=== PATIENT | male | born 1975 | race Caucasian/White ===

== ENCOUNTER 2019-09-04 10:40 | Emergency (ER) | payer OTHER ==
--- NOTE | 2019-09-04 10:58 | EDM.PDOC ---
ED HPI GENERAL MEDICAL PROBLEM - General Chief Complaint: Lower Extremity Injury/Pain Stated Complaint: 300 LBS DROPPED ON RIGHT FOOT/TOES Time Seen by Provider: 09/04/19 10:57 Source of Information: Reports: Patient, RN, RN Notes Reviewed History Limitations: Reports: No Limitations - History of Present Illness INITIAL COMMENTS - FREE TEXT/NARRATIVE: Pt presents to ER from active duty at [facility] with c/o crush injury to the right toes sustained from a 300lb section of three wood larry that was being moved fell onto his foot. Pt denies any other injury. Onset: Today, Sudden Duration: Constant Location: Reports: Lower Extremity, Right Quality: Reports: Ache Severity: Severe Improves with: Reports: None Worsens with: Reports: Other (Wt bearing/walking), Movement Context: Reports: Other (Crush injury) Associated Symptoms: Reports: No Other Symptoms Right Feet Pain Score (Numeric/FACES): 8 - Related Data Allergies Allergy/AdvReac Type Severity Reaction Status Date / Time No Known Allergies Allergy Verified 09/04/19 10:57 Home Meds: Home Meds Bimatoprost [LUMIGAN 0.01% Ophth Soln] 1 drop EYEBOTH DAILY 09/04/19 [History] Brimonidine Tartrate/Timolol [Combigan 0.2%-0.5% Eye Drops] 1 drop EYEBOTH BID 09/04/19 [History] Gabapentin [Neurontin] 300 mg PO QPM 09/04/19 [History] Levothyroxine Sodium [Synthroid] 137 mcg PO DAILY 09/04/19 [History] Omeprazole 20 mg PO DAILY 09/04/19 [History] Past Medical History Endocrine/Metabolic History: Reports: Hypothyroidism Social & Family History - Family History Family Medical History: Noncontributory - Living Situation & Occupation Occupation: Employed ([employer]) Review of Systems - Review of Systems Review Of Systems: Comprehensive ROS is negative, except as noted in HPI. ED EXAM, GENERAL - Physical Exam Exam: See Below Exam Limited By: No Limitations General Appearance: Alert, WD/WN, No Apparent Distress Respiratory/Chest: No Respiratory Distress Peripheral Pulses: 3+: Dorsalis Pedis (R) Extremities: No Pedal Edema, Normal Capillary Refill, Other (Rt toes 1-5 with mild soft tissue swelling and tenderness, no visible bruising or deformity, Rt foot proximal to toes is normal to exam.) Neurological: Alert, Oriented, No Motor/Sensory Deficits, Other (antalgic gait favoring Rt foot.) Course - Vital Signs Last Recorded V/S: Last Vital Signs Temp 97 F 09/04/19 10:53 Pulse 75 09/04/19 10:53 Resp 18 09/04/19 10:53 BP 129/93 H 09/04/19 10:53 Pulse Ox 97 09/04/19 10:53 - Orders/Labs/Meds Orders: Active Orders 24 hr Category Date Time Status Foot Comp Min 3V Rt [CR] Urgent Exams 09/04/19 11:20 Taken - Radiology Interpretation Free Text/Narrative:: XR Rt toes: no acute fractures, see Rad. report. Departure - Departure Time of Disposition: 12:18 Disposition: Home, Self-Care 01 Condition: Good Clinical Impression: Contusion of right foot including toes Qualifiers: Encounter type: initial encounter Qualified Code(s): S90.31XA - Contusion of right foot, initial encounter; S90.121A - Contusion of right lesser toe(s) without damage to nail, initial encounter - Discharge Information *PRESCRIPTION DRUG MONITORING PROGRAM REVIEWED*: Not Applicable *COPY OF PRESCRIPTION DRUG MONITORING REPORT IN PATIENT PATRICIA: Not Applicable Instructions: Foot Contusion, [id number] Forms: ED Department Discharge Additional Instructions: Rest, ice, and elevate right foot as needed. Activity as tolerated. Use Tylenol or Ibuprofen as needed for pain. Follow up in clinic for recheck if needed. Sepsis Event Note (ED) - Focused Exam Vital Signs: Vital Signs Temp Pulse Resp BP Pulse Ox 09/04/19 10:53 97 F 75 18 129/93 H 97 - My Orders Last 24 Hours: My Active Orders 09/04/19 11:20 Foot Comp Min 3V Rt [CR] Urgent - Assessment/Plan Last 24 Hours: My Active Orders 09/04/19 11:20 Foot Comp Min 3V Rt [CR] Urgent
--- NOTE | 2019-09-04 13:09 | CR ---
EXAMINATION: Foot Comp Min 3V Rt SEX: Male AGE: 44 years CLINICAL HISTORY: 44-year-old male, crush injury right forefoot (Rt toes 1-5). INTERPRETATION: 1. Pes cavus and hammertoe deformities right foot. 2. *Subtle cortical irregularity proximal diaphysis of the middle phalanx fourth toe suspicious for nondisplaced fracture. 3. No sign of other right foot fracture or dislocation. 4. No foreign bodies. 5. Large heel spur at the insertion plantar aponeurosis base of the os calcis.
== END 2019-09-04 12:28 | disposition home or self-care (01) ==
LOC: DL.ED 10:40
DX: S90.31XA Contusion of right foot, initial encounter (principal); S90.121A Contusion of right lesser toe(s) without damage to nail, initial encounter; E03.9 Hypothyroidism, unspecified; Z79.899 Other long term (current) drug therapy; W20.8XXA Other cause of strike by thrown, projected or falling object, initial encounter
CPT/HCPCS: 73630-RT; 99282; 99283

== ENCOUNTER 2021-05-23 21:10 | Emergency (ER) | payer OTHER ==
[2021-05-23] MEDS: Sodium Chloride 0.9% 10 ML Syringe FLUSH PRN (21:30)
[2021-05-23 22:04] LABS: ANION GAP 15.9 mEq/L (7-13); CHLORIDE,CL 105 mmol/L (98-107); SODIUM,NA 140 mmol/L (136-145)
[2021-05-23] MEDS: Aspirin 81 MG Tab.Chew PO ONE (22:05)
[2021-05-23] MEDS: Morphine 2 MG/ML SYRINGE IVPUSH ONE (22:05)
[2021-05-23] MEDS: HYDROmorphone 0.5 MG/0.5 ML Syringe IVPUSH ONE (22:41)
[2021-05-23] MEDS: GI Cocktail Oral Solution 30 ML PO ONE (23:09)
== END 2021-05-24 00:02 | disposition home or self-care (01) ==
LOC: DL.ED 21:10
DX: M94.0 Chondrocostal junction syndrome [Tietze] (principal); E03.9 Hypothyroidism, unspecified; Z79.899 Other long term (current) drug therapy
CPT/HCPCS: 36415; 71045; 80053; 80307; 82150; 83605; 83690; 84439; 84443; 84484; 85025; 85379; 86140; 93005; 93010; 96374; 96375; 99284; 99285; A9270; J1170; J2270